=== PATIENT | female | born 1960 | race Caucasian/White ===

== ENCOUNTER 2017-09-12 10:54 | Day surgery (SDC) | payer MEDICARE, OTHER ==
[2017-09-11 13:43] VITALS: BMI 32.9
[~2017-09-12 10:54] MED LIST: HEPARIN SODIUM,PORCINE 5,000 UNIT/ML 1 ML VIAL SQ ONE; LACTATED RINGERS 1,000 ML IV SCH; MORPHINE SULFATE 10 MG/ML SYRINGE IV PRN; Pre Op ABX Message 1 EACH MISC MISCELLANE ONE
[2017-09-12] MEDS ORDERED: ALPRAZolam 0.5 MG TAB PO ONE (10:59)
[2017-09-12] MEDS ORDERED: LACTATED RINGERS 1,000 ML IV ONE ×2 (10:59→14:21)
[2017-09-12] MEDS ORDERED: LIDOCAINE 1% 20 ML VIAL (10MG/ML) FOR IV START INTRADERMA ONE (11:00)
[2017-09-12] MEDS ORDERED: DEXAMETHASONE SOD PHOS (MDV) 100 MG/10 ML VIAL IVP ONE (11:07)
[2017-09-12] MEDS: ONDANSETRON 4 MG/2 ML VIAL IVP PRN ×2 (11:07→15:50)
[2017-09-12 11:14] LABS: Glucose,Whole Blood 144 mg/dL (75-99)
[2017-09-12] MEDS ORDERED: LIDOCAINE 1%/EPI 1:200,000 MPF 10 ML VIAL SQ ONE (11:50)
[2017-09-12] MEDS ORDERED: LIDOCAINE 1% INJ 10MG/ML (20 ML MDV) SQ ONE (12:15)
[2017-09-12] MEDS ORDERED: SODIUM BICARB 4% 5 ML VIAL (0.48 MEQ/ML) MISCELLANE ONE (12:15)
[2017-09-12] MEDS ORDERED: HEPARIN SODIUM,PORCINE 5,000 UNIT/ML 1 ML VIAL SQ ONE (13:07)
--- NOTE | 2017-09-12 13:15 | NM ---
EXAMINATION TYPE: NM sentinel node injection DATE OF EXAM: 09/12/2017 COMPARISON: NONE HISTORY: Right sided breast cancer TECHNIQUE AND FINDINGS: The procedure of sentinel lymph node injection was explained to the patient. The benefits, alternatives, and risks were discussed. An informed consent was then obtained. Overlying skin is cleaned with sterile alcohol. Lidocaine buffered with bicarbonate was used as anes thetic into the skin and subcutaneous tissue surrounding the nipple. Following this, 551 uCi Tc 99m Filtered Sulfur Colloid was injected into 4 equivalent doses at 12, 3, 6, and 9:00 position surroundi ng the right nipple intradermally. The injection sites were massaged by nuclear plant equipment operator for 10 minutes after injection. T he patient tolerated the procedure well without any immediate complication. The patient was kept in the radiology department for short stay after the procedure and then taken to surgery for surgical pr ocedure what is presumed intraoperative gamma probe will be used for sentinel lymph node detection. IMPRESSION: Right breast radiotracer injection for sentinel node localization as above.
[2017-09-12] MEDS ORDERED: SUCCINYLCHOLINE CHLORIDE 100 MG/5 ML SYR IV ONE (13:38)
[2017-09-12] MEDS ORDERED: MIDAZOLAM 2 MG/2 ML VIAL ONE (13:38)
[2017-09-12] MEDS ORDERED: fentaNYL (PF) 50 MCG/ML 2 ML AMP ONE (13:38)
[2017-09-12] MEDS ORDERED: LIDOCAINE 1% INJ 10MG/ML (20 ML MDV) ONE (13:38)
[2017-09-12] MEDS ORDERED: PROPOFOL 10 MG/ML 20 ML VIAL IV ONE (13:38)
[2017-09-12] MEDS ORDERED: ePHEDrine SULFATE/0.9% NACL/PF 50 MG/5 ML SYRINGE IV ONE (13:38)
[2017-09-12] MEDS ORDERED: SODIUM CHLORIDE 0.9% 50 ML with ceFAZolin 2,000 MG IV ONE ×2 (14:13)
--- NOTE | 2017-09-12 15:01 | MM ---
EXAM: Needle localization with wire placement. CLINICAL HISTORY: Biopsy-proven carcinoma in the right breast TECHNIQUE: Needle localization with wire placement and surgical excision of area of concern in the right breast. COMPARISON: Prior outside right breast ultrasound and mammogram July 28, 2017 FINDINGS: The procedure of needle localization with wire placement and than surgical excision was explained to the patient. Benefits, alternatives, and risks were discussed. An informed consent was then obtained. Ultrasound approach was chosen as lesion as well seen under ultrasound. Preprocedure scanning redemonstrates irregular heterogeneous hypoechoic shadowing 1.4 cm lesion 10:00 position zone BC of the right breast. The overlying skin was prepped and draped in usual sterile fashion. Lidocaine was used as anesthetic into the skin. Lidocaine with epinephrine is used as anesthetic into the deeper tissue up to the level of area of concern. A 5 cm needle was used. At this point, wire was placed and the needle was withdrawn. The wire was fixed to patient's skin. Postprocedure mammogram shows satisfactory deployment of wire relative to biopsy clip. The patient tolerated the procedure well without any immediate complication. The patient was kept in the radiology department for short stay after the procedure and then taken to surgery for surgical excision. Targeted biopsy clip and spiculated lesion and wire are identified in specimen mammogram. The patient was kept in hospital for short stay after the procedure and then discharged home in stable condition. IMPRESSION: Successful, uncomplicated needle localization with wire placement and surgical excision of suspicious biopsy-proven cancer in the right breast, full pathology results to follow. Pathology Results: Malignant A. LYMPH NODE, SENTINEL #1, BIOPSY: LYMPH NODE NEGATIVE FOR METASTASIS, CYTOKERATIN 7 AND HOA IMMUNOHISTOCHEMICAL STAINS ARE CONFIRMATORY (CONTROLS APPROPRIATE). B. LYMPH NODE, CLINICALLY ENLARGED, BIOPSY: LYMPH NODE NEGATIVE FOR METASTASIS , CYTOKERATIN 7 AND HOA IMMUNOHISTOCHEMICAL STAINS ARE CONFIRMATORY (CONTROLS APPROPRIATE). ADDENDUM REPORT C. BREAST, RIGHT, LUMPECTOMY: INVASIVE DUCTAL CARCINOMA AND DUCTAL CARCINOMA IN SITU (DCIS), MARGINS NEGATIVE. SEE SURGICAL PATHOLOGY CANCER CASE SUMMARY AND COMMENT. Recommendation Surgical consult of the right breast. [facility]
--- NOTE | 2017-09-12 15:29 | P.PCN ---
Date of Procedure: 09/12/17 Preoperative Diagnosis: right breast cancer Postoperative Diagnosis: Same Procedure(s) Performed: right lumpectomy and SNB Anesthesia: NEFTALI Surgeon: Jocy Ruiz Faculty Research Assistant #1: Solomon Castaneda Estimated Blood Loss (ml): 10 IV fluids (ml): 1,000 Pathology: other (Marana node, right breast lumpectomy) Condition: stable Disposition: PACU Indications for Procedure: right breast cancer Operative Findings: Right breast lump upper outer quadrant Description of Procedure: Patient was taken to the operating room and following induction of general anesthesia the right breast and infiltrated prepped and draped in a sterile fashion. All 5 mL of half-strength methylene blue was injected in the periareolar area. The breast was then massaged. The lumpectomy was performed initially. An incision was made and carried down to the hook of the needle which had been placed. Surrounding tissue was excised. Excision was directly under the skin anteriorly and down to the muscle of the pectoralis and posteriorly. Wide excision was performed. This was noted to be present was in the specimen no evidence of gross disease was present at the margins. Specimen was painted and sent for radiographic evaluation radiographic evaluation revealed there is concern had been removed. Following this and gowns and gloves were changed. This was obtained and the axilla was approached. An incision was made in the axilla and a lymph node which was both radioactive and blue was identified. This was negative for cancer on frozen section. A 10 second count was 1100. Palpation in the axilla revealed a second large node which was clinically somewhat concerning this was removed and frozen section was negative for cancer on this as well. The background count in the axilla was zero. After we were assured that hemostasis was attained a Eric-Jacob drain was placed in the axilla. The deep tissues were closed using 3-0 Vicryl suture. The skin was closed using 4-0 Monocryl. The area of the breast was then addressed, and the cavity was sized using the Biozorb spacer device. The 3x4 cm Biozorb was chosen. This was placed and secured in place using 3-0 Vicryl suture. The breast tissue was mobilized using the electrocautery device to facilitate coverage of the Biozorb. After this has been accomplished the deep tissues were closed using 3-0 Vicryl suture. The tissue that was mobilized was approximately 4 cm x 2 cm. After assured that hemostasis was attained the skin was closed using a 4-0 Monocryl. The patient tolerated the procedure in stable condition. All instrument and sponge counts were correct at the end of the case.
--- NOTE | 2017-09-12 15:33 | P.DS ---
Providers Attending physician: Jocy Ruiz Primary care physician: [facility] Course: Patient is a 57-year-old white female with right breast cancer. She underwent a lumpectomy and sentinel node biopsy. She tolerated the procedure well and is to be discharged home to be followed as an outpatient. Plan - Discharge Summary New Discharge Prescriptions: New HYDROcodone/APAP 5-325MG [Cros[place] 5] 1 - 2 each PO Q4H PRN #20 tab PRN Reason: Pain No Action lamoTRIgine [LaMICtal] 200 mg PO QAM Lisinopril-Hctz 20-25 mg [Zestoretic 20-25] 1 tab PO DAILY Aspirin 81 mg PO DAILY Atorvastatin [Lipitor] 20 mg PO DAILY metFORMIN HCL [Glucophage] 500 mg PO BID Zolpidem Tartrate [Ambien] 10 mg PO HS Discharge Medication List Aspirin 81 mg PO DAILY 09/11/17 [History] Atorvastatin [Lipitor] 20 mg PO DAILY 09/11/17 [History] Lisinopril-Hctz 20-25 mg [Zestoretic 20-25] 1 tab PO DAILY 09/11/17 [History] Zolpidem Tartrate [Ambien] 10 mg PO HS 09/11/17 [History] lamoTRIgine [LaMICtal] 200 mg PO QAM 09/11/17 [History] metFORMIN HCL [Glucophage] 500 mg PO BID 09/11/17 [History] HYDROcodone/APAP 5-325MG [Crosby 5] 1 - 2 each PO Q4H PRN #20 tab 09/12/17 [Rx] Follow up Appointment(s)/Referral(s): Jocy Ruiz MD [STAFF PHYSICIAN] - 1 Week Activity/Diet/Wound Care/Special Instructions: Teach drain care Do not drive while taking pain medication do not drive today Patient may shower after 48 hours Discharge Disposition: HOME SELF-CARE
[2017-09-12 15:53] VITALS: TEMP 98
[2017-09-12] MEDS ORDERED: PROMETHAZINE INJ 25 MG/ML 1 ML VIAL IVPB ONE (16:01)
[2017-09-12] MEDS: HYDROmorphone 1 MG/ML 1 ML SYRINGE IVP ONE ×2 (16:06→16:12)
[2017-09-12] MEDS ORDERED: HYDROmorphone 1 MG/ML 1 ML SYRINGE IVP ONE (16:24)
[2017-09-12 16:28] VITALS: RESP 16
[2017-09-12 17:18] VITALS: PULSE 90
[2017-09-12 17:35] VITALS: BP 145/80
== END 2017-09-12 18:04 | disposition home or self-care (01) ==
LOC: OR 10:54
PROVIDERS: ATTEND Surgery
DX: C50.911 Malignant neoplasm of unspecified site of right female breast (principal); E11.9 Type 2 diabetes mellitus without complications; I10 Essential (primary) hypertension; E78.5 Hyperlipidemia, unspecified; F31.9 Bipolar disorder, unspecified; Z79.899 Other long term (current) drug therapy; Z79.84 Long term (current) use of oral hypoglycemic drugs; Z79.82 Long term (current) use of aspirin; F17.210 Nicotine dependence, cigarettes, uncomplicated
CPT/HCPCS: 19125; 38525; 88342; 88331; 88332; 88307; 88341; 76098; 19285; 38792; A4648; G0206; A9541; J2250; J2550; J2405; J2001; J3010; J1170; J0690; J1100; J0330; J2704; 88305

== ENCOUNTER → 2021-02-18 | Outpatient (CLI) | payer MEDICARE ==
[2021-02-18 14:24] VITALS: BP 106/70; PULSE 89; RESP 20; TEMP 98
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
== END | disposition home or self-care (01) ==
LOC: WWCWWP 14:08
PROVIDERS: ATTEND Surgery
DX: N60.11 Diffuse cystic mastopathy of right breast (principal); N60.12 Diffuse cystic mastopathy of left breast; E11.9 Type 2 diabetes mellitus without complications; F31.9 Bipolar disorder, unspecified; I10 Essential (primary) hypertension; M81.0 Age-related osteoporosis without current pathological fracture; E78.5 Hyperlipidemia, unspecified; J44.9 Chronic obstructive pulmonary disease, unspecified; F17.210 Nicotine dependence, cigarettes, uncomplicated; F32.9 Major depressive disorder, single episode, unspecified; F41.9 Anxiety disorder, unspecified; Z98.890 Other specified postprocedural states; Z85.3 Personal history of malignant neoplasm of breast

== ENCOUNTER → 2021-02-24 | Outpatient (CLI) | payer MEDICARE ==
--- NOTE | 2021-02-24 10:53 | USB ---
Reason for exam: clinical finding. History: Patient has history of breast cancer at age 57. Malignant US breast localization RT of the right breast, September 12, 2017. Lumpectomy of the right breast, September 12, 2017. Indicated problem(s): lump or thickening and other indicated problem in the right breast. Physical Findings: Nurse Summary: Patient complains of right breast lump upper outer quadrant x 3 months, biozorb palpated at 10 o'clock, tender nodularity at 3 o'clock (nurse mj). US Breast RT Right complete breast ultrasound includes all four quadrants, the retroareolar region and axilla. Finding demonstrates a 2.0 x 1.6 x 1.2cm solid, hypoechoic lesion at 10 o'clock, biozorb at known cancer. These results were verbally communicated with the patient and result sheet given to the patient on 02/24/21. ASSESSMENT: Benign, BI-RAD 2 RECOMMENDATION: Follow-up diagnostic mammogram of both breasts in 8 months. Back on schedule for September 2021. Manage patient on a clinical basis.
== END | disposition home or self-care (01) ==
LOC: RADUSWWP 09:44
PROVIDERS: ATTEND Surgery
DX: Z08 Encounter for follow-up examination after completed treatment for malignant neoplasm (principal); Z85.3 Personal history of malignant neoplasm of breast